=== PATIENT | male | born 1955 | race Caucasian/White ===

== ENCOUNTER → 2019-11-09 | Outpatient (CLI) | payer BC, OTHER | LOC: GMAJ 10:55 | PROVIDERS: ATTEND Family Medicine | DX: R79.0 Abnormal level of blood mineral (principal) ==

== ENCOUNTER → 2020-05-09 | Outpatient (CLI) | payer BC | LOC: GMAJ 15:29 | PROVIDERS: ATTEND Family Medicine | DX: E03.8 Other specified hypothyroidism (principal); K76.0 Fatty (change of) liver, not elsewhere classified ==

== ENCOUNTER → 2020-09-14 | Outpatient (CLI) | payer BC | LOC: GMAJ 14:47 | PROVIDERS: ATTEND Family Medicine | DX: R50.9 Fever, unspecified (principal) ==

== ENCOUNTER → 2020-09-28 | Outpatient (CLI) | payer BC ==
--- NOTE | 2020-09-28 11:27 | CT ---
EXAM DESCRIPTION: Abdomen/Pelvis w/Contrast: Computed Tomography. CLINICAL HISTORY: 65 years Male ABD PAIN COMPARISON: CT scan abdomen and pelvis March 2016. TECHNIQUE: Spiral-axial scans at 5 x 5 mm intervals through the abdomen and pelvis, after nonionic IV contrast without oral contrast. Coronal and sagittal 2.0 mm reconstructions. No delayed scans. No adverse reactions. Total Exam DLP: 1469 mGy-cm. This exam was performed according to our departmental dose-optimization program which includes automated exposure control, adjustment of the mA and/or kV according to patient size and/or use of iterative reconstruction technique; to reduce radiation dose to as low as reasonably achievable (ALARA). FINDINGS: Lung bases and pleura: Negative. Liver, Stomach, Spleen, Adrenal Glands: Unremarkable. Pancreas, Gallbladder, Ducts: Gallbladder small, otherwise negative. Kidneys and Ureters: Negative. Mesentery: Unremarkable. Aorta: Minimal atherosclerotic calcifications and tortuosity. No aneurysm or stenosis. Small Bowel: Negative. Terminal Ileum/Cecum: Normal caliber. Appendix visualized and normal caliber. No inflammatory changes. Colon: Minimal fecal matter. Diverticula beginning in the distal descending colon continuing to the sigmoid colon. No complications. Pelvic Organs: Urinary bladder minimally distended. Prostate gland impressing on the base of the bladder and the seminal vesicles. Spine and Bony Pelvis: Spondylosis at multiple levels with levoscoliosis lumbar spine. No interval change. Hypertrophic posterior spur superior lateral aspect with over coverage of the right femoral head. Stable. Schmorl's node or small compression deformity stable superior L1 endplate. No change from the prior study. Abdominal Wall/Back Soft Tissues: Bilateral fatty inguinal hernias noted containing bowel, larger on the right. Diastases at the umbilicus containing fat but not bowel. IMPRESSION: 1. No acute abnormalities in the abdomen or pelvis on CT scan with IV contrast. Diverticulosis without complications distal colon. Lumbar scoliosis and spondylosis and hypertrophic right acetabulum with over coverage of the right femoral head. Can be associated with femoral acetabular impingement. These findings are stable since the prior study. Electronically signed by: Norm Troy MD 09/28/2020 11:26 AM MOSAIC[facility]
== END ==
LOC: CT 08:55
PROVIDERS: ATTEND Family Medicine
DX: K57.30 Diverticulosis of large intestine without perforation or abscess without bleeding (principal); M41.86 Other forms of scoliosis, lumbar region; M47.896 Other spondylosis, lumbar region